=== PATIENT | female | born 1955 | race African-American/Black ===

== ENCOUNTER 2020-07-26 15:56 | Emergency (ER) | payer MEDICAID, OTHER ==
[~2020-07-26] VITALS: Ht 165.1 cm; Wt 60.0 kg
[2020-07-26] MEDS ORDERED: IBUPROFEN 600MG TABLET PO ONE (16:30)
[2020-07-26] MEDS ORDERED: KETOROLAC 30MG/ML VIAL IM ONE (17:30)
[2020-07-26 17:47] VITALS: BP 111/68
== END 2020-07-26 18:08 | disposition home or self-care (01) ==
LOC: ER 16:00
DX: S52.602A Unspecified fracture of lower end of left ulna, initial encounter for closed fracture (principal); W22.8XXA Striking against or struck by other objects, initial encounter; Y93.89 Activity, other specified; Y92.89 Other specified places as the place of occurrence of the external cause
CPT/HCPCS: 29105; 73110; 96372; 99283; J1885